=== PATIENT | female | born 1960 | race Caucasian/White ===

== ENCOUNTER 2019-07-12 10:24 | Inpatient (IN) ==
[2019-07-12] MEDS ORDERED: Ondansetron ODT 4 MG TAB.RAPDIS SL PRN (20:38)
[2019-07-12] MEDS ORDERED: Mag Hydrox/Al Hydrox/Simeth 30 ML UDC PO PRN (20:38)
[2019-07-12] MEDS: hydrALAZINE 25 MG TABLET PO SCH (23:24)
[2019-07-12] MEDS: Budesonide/Formoterol 160/4.5 1 PUFF INH IH SCH (23:25)
[2019-07-13 05:08] LABS: Basophils % 0.2 %; Eosinophils # 0.1 K/mcL (0.0-0.6); Eosinophils % 1.1 %; Hematocrit 27.8 % (35.3-44.9); Hemoglobin 8.3 g/dL (11.5-15.4); Immature Granulocytes % 0.2 % (0-4); Lymphocytes # 1.3 K/mcL (0.6-4.6); Lymphocytes % 12.5 %; Mean Corpuscular HGB Conc 29.9 g/dL (31.6-35.5); Mean Corpuscular Hemoglobin 30.2 pg (28.0-33.3); Mean Corpuscular Volume 101.1 fL (83.0-100.0); Mean Platelet Volume 10.1 fL (9.4-12.4); Monocytes # 0.6 K/mcL (0.0-1.3); Monocytes % 5.7 %; Neutrophils # 8.3 K/mcL (1.6-8.9); Platelet Count 288 K/mcL (140-400); Red Blood Count 2.75 M/mcL (3.82-4.97); Red Cell Distribution Width 14.2 % (11.5-14.5); Segmented Neutrophils % 80.3 %; White Blood Count 10.3 K/mcL (4.3-11.1)
[2019-07-13 05:36] LABS: Alanine Aminotransferase 22 Units/L (7-52); Albumin 3.2 g/dL (3.5-5.7); Albumin/Globulin Ratio 1.6 (1.1-2.2); Alkaline Phosphatase 67 Units/L (34-104); Aspartate Amino Transferase 15 Units/L (13-39); BUN/Creatinine Ratio 30 (6-26); Bilirubin,Total 0.5 mg/dL (0.3-1.0); Blood Urea Nitrogen 13 mg/dL (6-20); Calcium 9.1 mg/dL (8.6-10.3); Carbon Dioxide 45 mEq/L (23-29); Chloride 94 mEq/L (98-107); Glucose 108 mg/dL (70-105); Osmolality,Calculated 295 (280-300); Potassium 3.8 mEq/L (3.5-5.1); Sodium 142 mEq/L (136-145); Total Protein 5.2 g/dL (6.4-8.9); eGFR For African Americans > 60 (> 60); eGFR For Non-African Americans > 60 (> 60)
[2019-07-13] MEDS: *HR* Enoxaparin 40 MG/0.4 ML SYRINGE SQ SCH (07:03)
[2019-07-13] MEDS: hydrALAZINE 25 MG TABLET PO SCH ×3 (09:31→21:11)
[2019-07-13] MEDS: Metoprolol XL (24 HR) Succ 25 MG TAB.ER.24H PO SCH (09:32)
[2019-07-13] MEDS: *HR* OxyCODONE Immed Rel 5 MG TABLET PO PRN ×3 (10:03→21:11)
[2019-07-13] MEDS: Budesonide/Formoterol 160/4.5 1 PUFF INH IH SCH ×2 (10:33→21:10)
[2019-07-13] MEDS: Tiotropium 18 MCG inhalation IH SCH (10:33)
[2019-07-13] MEDS: Melatonin 3 MG TABLET PO PRN (21:11)
[2019-07-14] MEDS: *HR* OxyCODONE Immed Rel 5 MG TABLET PO PRN ×4 (03:43→18:53)
[2019-07-14] MEDS: *HR* Enoxaparin 40 MG/0.4 ML SYRINGE SQ SCH (06:17)
[2019-07-14] MEDS: Tiotropium 18 MCG inhalation IH SCH (07:36)
[2019-07-14] MEDS: Budesonide/Formoterol 160/4.5 1 PUFF INH IH SCH ×2 (07:36→21:26)
[2019-07-14] MEDS: hydrALAZINE 25 MG TABLET PO SCH ×3 (07:55→21:26)
[2019-07-14] MEDS: Metoprolol XL (24 HR) Succ 25 MG TAB.ER.24H PO SCH (07:55)
[2019-07-14] MEDS: Acetaminophen 325 MG TABLET PO PRN ×2 (10:57→15:17)
[2019-07-14 15:25] LABS: Bilirubin,Urine Negative (Negative); Blood,Urine Trace-intact (Negative); Clarity,Urine Slightly Cloudy (Clear); Color,Urine Yellow (Yellow); Glucose,Urine (UA) Normal (Normal); Ketones,Urine Negative (Negative); Leukocyte Esterase,Urine Trace (Negative); Nitrite,Urine Positive (Negative); Protein,Urine 30 mg/dL (Neg-Trace); Specific Gravity,Urine 1.025 (1.010-1.025)
[2019-07-14 15:34] LABS: RBC,Urine 15-30 per hpf (0-3)
[2019-07-14 15:35] LABS: Bacteria,Urine Many per hpf (None-Few); Squamous Epithelial Cell,Urine Moderate per lpf (None-Few); WBC,Urine 50-100 per hpf (0-3)
[2019-07-14] MEDS: Melatonin 3 MG TABLET PO PRN (21:26)
[2019-07-15] MEDS: *HR* OxyCODONE Immed Rel 5 MG TABLET PO PRN ×4 (04:41→18:23)
[2019-07-15] MEDS: *HR* Enoxaparin 40 MG/0.4 ML SYRINGE SQ SCH (04:41)
[2019-07-15] MEDS: Budesonide/Formoterol 160/4.5 1 PUFF INH IH SCH ×2 (08:56→20:30)
[2019-07-15] MEDS: Tiotropium 18 MCG inhalation IH SCH (08:56)
[2019-07-15] MEDS: hydrALAZINE 25 MG TABLET PO SCH ×3 (09:08→20:29)
[2019-07-15] MEDS: Metoprolol XL (24 HR) Succ 25 MG TAB.ER.24H PO SCH (09:08)
[2019-07-15] MEDS: Melatonin 3 MG TABLET PO PRN (20:29)
[2019-07-16] MEDS: *HR* OxyCODONE Immed Rel 5 MG TABLET PO PRN ×5 (00:24→21:28)
[2019-07-16] MEDS: *HR* Enoxaparin 40 MG/0.4 ML SYRINGE SQ SCH (05:53)
[2019-07-16] MEDS: Albuterol 2.5 MG/3 ML NEBULIZER IH PRN ×3 (06:26→19:50)
[2019-07-16 07:26] LABS: ABG Base Excess 10 mEq/L (-2 to 3); ABG HCO3 40 mEq/L (21-27); ABG Oxygen Saturation 94 % (95-98); ABG PCO2 87 mmHg (35-45); ABG PH 7.27 pH Units (7.32-7.45); ABG PO2 85 mmHg (85-104); ABG TCO2 43 mEq/L (20-26)
[2019-07-16] MEDS: hydrALAZINE 25 MG TABLET PO SCH ×3 (09:40→20:40)
[2019-07-16] MEDS: Metoprolol XL (24 HR) Succ 25 MG TAB.ER.24H PO SCH (09:40)
[2019-07-16] MEDS: Tiotropium 18 MCG inhalation IH SCH (10:10)
[2019-07-16] MEDS: Budesonide/Formoterol 160/4.5 1 PUFF INH IH SCH ×2 (10:10→19:51)
[2019-07-16] MEDS: Acetaminophen 325 MG TABLET PO PRN (19:52)
[2019-07-16] MEDS: hydrOXYzine pamoate 25 MG CAPSULE PO PRN (19:52)
[2019-07-16] MEDS: Melatonin 3 MG TABLET PO PRN (20:40)
[2019-07-17] MEDS: Albuterol 2.5 MG/3 ML NEBULIZER IH PRN ×4 (03:58→20:03)
[2019-07-17] MEDS: *HR* Enoxaparin 40 MG/0.4 ML SYRINGE SQ SCH (06:40)
[2019-07-17] MEDS: *HR* OxyCODONE Immed Rel 5 MG TABLET PO PRN ×4 (06:40→21:49)
[2019-07-17] MEDS: hydrALAZINE 25 MG TABLET PO SCH ×3 (07:48→21:48)
[2019-07-17] MEDS: Metoprolol XL (24 HR) Succ 25 MG TAB.ER.24H PO SCH (07:48)
[2019-07-17] MEDS: Tiotropium 18 MCG inhalation IH SCH (11:14)
[2019-07-17] MEDS: Budesonide/Formoterol 160/4.5 1 PUFF INH IH SCH ×2 (11:14→20:03)
[2019-07-17] MEDS: Acetaminophen 325 MG TABLET PO PRN (15:05)
[2019-07-17] MEDS: Melatonin 3 MG TABLET PO PRN (21:50)
[2019-07-18] MEDS: *HR* Enoxaparin 40 MG/0.4 ML SYRINGE SQ SCH (05:02)
[2019-07-18] MEDS: *HR* OxyCODONE Immed Rel 5 MG TABLET PO PRN ×5 (05:02→21:33)
[2019-07-18] MEDS: hydrALAZINE 25 MG TABLET PO SCH ×3 (08:20→21:32)
[2019-07-18] MEDS: Metoprolol XL (24 HR) Succ 25 MG TAB.ER.24H PO SCH (08:21)
[2019-07-18] MEDS: Acetaminophen 325 MG TABLET PO PRN (08:27)
[2019-07-18] MEDS: Budesonide/Formoterol 160/4.5 1 PUFF INH IH SCH ×2 (11:18→22:39)
[2019-07-18] MEDS: Tiotropium 18 MCG inhalation IH SCH (11:18)
[2019-07-19] MEDS: *HR* OxyCODONE Immed Rel 5 MG TABLET PO PRN ×5 (01:53→21:47)
[2019-07-19] MEDS: *HR* Enoxaparin 40 MG/0.4 ML SYRINGE SQ SCH (04:51)
[2019-07-19] MEDS: Albuterol 2.5 MG/3 ML NEBULIZER IH PRN (07:30)
[2019-07-19] MEDS: hydrALAZINE 25 MG TABLET PO SCH ×3 (07:48→20:54)
[2019-07-19] MEDS: Metoprolol XL (24 HR) Succ 25 MG TAB.ER.24H PO SCH (07:48)
[2019-07-19] MEDS: Acetaminophen 325 MG TABLET PO PRN ×3 (10:08→20:54)
[2019-07-19] MEDS: Budesonide/Formoterol 160/4.5 1 PUFF INH IH SCH ×2 (11:09→21:47)
[2019-07-19] MEDS: Tiotropium 18 MCG inhalation IH SCH (11:09)
[2019-07-19] MEDS: Albuterol 2.5 MG/3 ML NEBULIZER IH SCH ×3 (13:45→20:55)
[2019-07-20] MEDS: Albuterol 2.5 MG/3 ML NEBULIZER IH SCH ×3 (03:22→17:03)
[2019-07-20] MEDS: *HR* Enoxaparin 40 MG/0.4 ML SYRINGE SQ SCH (04:36)
[2019-07-20] MEDS: *HR* OxyCODONE Immed Rel 5 MG TABLET PO PRN ×4 (04:36→18:23)
[2019-07-20 05:18] LABS: Basophils % 0.5 %; Eosinophils # 0.2 K/mcL (0.0-0.6); Eosinophils % 5.3 %; Hematocrit 27.1 % (35.3-44.9); Hemoglobin 8.1 g/dL (11.5-15.4); Immature Granulocytes % 0.3 % (0-4); Lymphocytes # 0.9 K/mcL (0.6-4.6); Lymphocytes % 23.1 %; Mean Corpuscular HGB Conc 29.9 g/dL (31.6-35.5); Mean Corpuscular Hemoglobin 30.1 pg (28.0-33.3); Mean Corpuscular Volume 100.7 fL (83.0-100.0); Mean Platelet Volume 9.7 fL (9.4-12.4); Monocytes # 0.4 K/mcL (0.0-1.3); Monocytes % 10.4 %; Neutrophils # 2.3 K/mcL (1.6-8.9); Platelet Count 240 K/mcL (140-400); Red Blood Count 2.69 M/mcL (3.82-4.97); Red Cell Distribution Width 14.5 % (11.5-14.5); Segmented Neutrophils % 60.4 %; White Blood Count 3.8 K/mcL (4.3-11.1)
[2019-07-20 05:33] LABS: BUN/Creatinine Ratio 21 (6-26); Blood Urea Nitrogen 10 mg/dL (6-20); Calcium 8.7 mg/dL (8.6-10.3); Carbon Dioxide 39 mEq/L (23-29); Chloride 98 mEq/L (98-107); Glucose 123 mg/dL (70-105); Osmolality,Calculated 292 (280-300); Potassium 3.8 mEq/L (3.5-5.1); Sodium 141 mEq/L (136-145); eGFR For African Americans > 60 (> 60); eGFR For Non-African Americans > 60 (> 60)
[2019-07-20] MEDS: Acetaminophen 325 MG TABLET PO PRN ×3 (07:27→21:39)
[2019-07-20] MEDS: Metoprolol XL (24 HR) Succ 25 MG TAB.ER.24H PO SCH (08:02)
[2019-07-20] MEDS: hydrALAZINE 25 MG TABLET PO SCH ×3 (08:02→21:39)
[2019-07-20] MEDS: Budesonide/Formoterol 160/4.5 1 PUFF INH IH SCH ×2 (09:24→21:39)
[2019-07-20] MEDS: Tiotropium 18 MCG inhalation IH SCH (09:24)
[2019-07-21] MEDS: *HR* OxyCODONE Immed Rel 5 MG TABLET PO PRN ×6 (00:03→21:32)
[2019-07-21] MEDS: Albuterol 2.5 MG/3 ML NEBULIZER IH SCH ×5 (00:06→22:04)
[2019-07-21] MEDS: *HR* Enoxaparin 40 MG/0.4 ML SYRINGE SQ SCH (05:23)
[2019-07-21] MEDS: Metoprolol XL (24 HR) Succ 25 MG TAB.ER.24H PO SCH (07:54)
[2019-07-21] MEDS: hydrALAZINE 25 MG TABLET PO SCH ×3 (07:54→21:32)
[2019-07-21] MEDS: Acetaminophen 325 MG TABLET PO PRN (09:00)
[2019-07-21] MEDS: Budesonide/Formoterol 160/4.5 1 PUFF INH IH SCH ×2 (11:02→22:04)
[2019-07-21] MEDS: Tiotropium 18 MCG inhalation IH SCH (11:02)
[2019-07-22] MEDS: *HR* OxyCODONE Immed Rel 5 MG TABLET PO PRN ×5 (02:18→20:30)
[2019-07-22] MEDS: Albuterol 2.5 MG/3 ML NEBULIZER IH SCH ×4 (04:14→21:46)
[2019-07-22] MEDS: *HR* Enoxaparin 40 MG/0.4 ML SYRINGE SQ SCH (06:50)
[2019-07-22] MEDS: hydrALAZINE 25 MG TABLET PO SCH ×3 (07:45→20:30)
[2019-07-22] MEDS: Metoprolol XL (24 HR) Succ 25 MG TAB.ER.24H PO SCH (07:46)
[2019-07-22] MEDS: Budesonide/Formoterol 160/4.5 1 PUFF INH IH SCH ×2 (11:21→21:46)
[2019-07-22] MEDS: Tiotropium 18 MCG inhalation IH SCH (11:38)
[2019-07-22] MEDS ORDERED: Isovue-370 500 ML BOTTLE IVP ONE (18:09)
[2019-07-22 18:45] LABS: ABG Base Excess 9 mEq/L (-2 to 3); ABG HCO3 38 mEq/L (21-27); ABG Oxygen Saturation 92 % (95-98); ABG PCO2 69 mmHg (35-45); ABG PH 7.35 pH Units (7.32-7.45); ABG PO2 71 mmHg (85-104); ABG TCO2 40 mEq/L (20-26)
[2019-07-22 18:49] LABS: BUN/Creatinine Ratio 15 (6-26); Blood Urea Nitrogen 9 mg/dL (6-20); Calcium 8.9 mg/dL (8.6-10.3); Carbon Dioxide 40 mEq/L (23-29); Chloride 97 mEq/L (98-107); Glucose 157 mg/dL (70-105); Osmolality,Calculated 290 (280-300); Potassium 3.8 mEq/L (3.5-5.1); Sodium 139 mEq/L (136-145); eGFR For African Americans > 60 (> 60); eGFR For Non-African Americans > 60 (> 60)
[2019-07-22] MEDS: hydrOXYzine pamoate 25 MG CAPSULE PO PRN (20:30)
[2019-07-22] MEDS: Melatonin 3 MG TABLET PO PRN (20:30)
[2019-07-23] MEDS: *HR* OxyCODONE Immed Rel 5 MG TABLET PO PRN ×5 (03:46→20:27)
[2019-07-23] MEDS: *HR* Enoxaparin 40 MG/0.4 ML SYRINGE SQ SCH (03:46)
[2019-07-23] MEDS: Albuterol 2.5 MG/3 ML NEBULIZER IH SCH ×4 (03:50→20:13)
[2019-07-23] MEDS: hydrALAZINE 25 MG TABLET PO SCH ×3 (08:01→20:14)
[2019-07-23] MEDS: Metoprolol XL (24 HR) Succ 25 MG TAB.ER.24H PO SCH (08:01)
[2019-07-23] MEDS: Acetaminophen 325 MG TABLET PO PRN ×2 (09:43→18:38)
[2019-07-23] MEDS: Tiotropium 18 MCG inhalation IH SCH (10:58)
[2019-07-23] MEDS: Budesonide/Formoterol 160/4.5 1 PUFF INH IH SCH ×2 (10:59→20:28)
[2019-07-24] MEDS: *HR* OxyCODONE Immed Rel 5 MG TABLET PO PRN ×5 (04:27→21:27)
[2019-07-24] MEDS: Albuterol 2.5 MG/3 ML NEBULIZER IH SCH ×4 (04:28→21:28)
[2019-07-24] MEDS: *HR* Enoxaparin 40 MG/0.4 ML SYRINGE SQ SCH (04:28)
[2019-07-24] MEDS: Metoprolol XL (24 HR) Succ 25 MG TAB.ER.24H PO SCH (08:48)
[2019-07-24] MEDS: hydrALAZINE 25 MG TABLET PO SCH ×3 (08:48→21:28)
[2019-07-24] MEDS: Tiotropium 18 MCG inhalation IH SCH (09:19)
[2019-07-24] MEDS: Budesonide/Formoterol 160/4.5 1 PUFF INH IH SCH ×2 (09:19→21:28)
[2019-07-24] MEDS: Melatonin 3 MG TABLET PO PRN (21:28)
[2019-07-25] MEDS: *HR* OxyCODONE Immed Rel 5 MG TABLET PO PRN ×5 (02:28→22:43)
[2019-07-25] MEDS: Albuterol 2.5 MG/3 ML NEBULIZER IH SCH ×4 (06:34→20:26)
[2019-07-25] MEDS: *HR* Enoxaparin 40 MG/0.4 ML SYRINGE SQ SCH (06:40)
[2019-07-25] MEDS: Tiotropium 18 MCG inhalation IH SCH (09:29)
[2019-07-25] MEDS: Budesonide/Formoterol 160/4.5 1 PUFF INH IH SCH ×2 (09:29→20:26)
[2019-07-25] MEDS: hydrALAZINE 25 MG TABLET PO SCH ×3 (09:41→20:26)
[2019-07-25] MEDS: Metoprolol XL (24 HR) Succ 25 MG TAB.ER.24H PO SCH (09:42)
[2019-07-25] MEDS: Furosemide 20 MG/2 ML VIAL IVP SCH ×2 (13:11→20:26)
[2019-07-25] MEDS: MethylPREDNISolone 40 MG/ML VIAL IVP SCH ×2 (15:59→22:43)
[2019-07-25] MEDS: Melatonin 3 MG TABLET PO PRN (20:25)
[2019-07-26] MEDS: *HR* Enoxaparin 40 MG/0.4 ML SYRINGE SQ SCH (04:22)
[2019-07-26] MEDS: *HR* OxyCODONE Immed Rel 5 MG TABLET PO PRN ×5 (04:22→23:01)
[2019-07-26] MEDS: Albuterol 2.5 MG/3 ML NEBULIZER IH SCH ×4 (04:22→21:49)
[2019-07-26 05:23] LABS: Hematocrit 31.3 % (35.3-44.9); Hemoglobin 9.3 g/dL (11.5-15.4); Immature Granulocytes % 0.2 % (0-4); Lymphocytes # 0.6 K/mcL (0.6-4.6); Lymphocytes % 13.3 %; Mean Corpuscular HGB Conc 29.7 g/dL (31.6-35.5); Mean Corpuscular Hemoglobin 29.4 pg (28.0-33.3); Mean Corpuscular Volume 99.1 fL (83.0-100.0); Mean Platelet Volume 10.3 fL (9.4-12.4); Monocytes # 0.1 K/mcL (0.0-1.3); Monocytes % 1.6 %; Neutrophils # 3.8 K/mcL (1.6-8.9); Platelet Count 332 K/mcL (140-400); Red Blood Count 3.16 M/mcL (3.82-4.97); Segmented Neutrophils % 84.9 %; White Blood Count 4.4 K/mcL (4.3-11.1)
[2019-07-26 05:50] LABS: BUN/Creatinine Ratio 20 (6-26); Blood Urea Nitrogen 10 mg/dL (6-20); Calcium 9.2 mg/dL (8.6-10.3); Carbon Dioxide 41 mEq/L (23-29); Chloride 94 mEq/L (98-107); Glucose 171 mg/dL (70-105); Osmolality,Calculated 291 (280-300); Sodium 139 mEq/L (136-145); eGFR For African Americans > 60 (> 60); eGFR For Non-African Americans > 60 (> 60)
[2019-07-26] MEDS: Metoprolol XL (24 HR) Succ 25 MG TAB.ER.24H PO SCH (09:34)
[2019-07-26] MEDS: hydrALAZINE 25 MG TABLET PO SCH ×3 (09:34→21:35)
[2019-07-26] MEDS: Furosemide 20 MG/2 ML VIAL IVP SCH (09:35)
[2019-07-26] MEDS: MethylPREDNISolone 40 MG/ML VIAL IVP SCH ×2 (09:35→15:35)
[2019-07-26] MEDS: Tiotropium 18 MCG inhalation IH SCH (11:16)
[2019-07-26] MEDS: Budesonide/Formoterol 160/4.5 1 PUFF INH IH SCH ×2 (11:18→21:50)
[2019-07-26] MEDS: Acetaminophen 325 MG TABLET PO PRN (11:39)
[2019-07-26] MEDS: acetaZOLAMIDE 250 MG TABLET PO SCH ×2 (11:40→21:35)
[2019-07-27] MEDS: MethylPREDNISolone 40 MG/ML VIAL IVP SCH ×3 (00:06→15:55)
[2019-07-27] MEDS: Albuterol 2.5 MG/3 ML NEBULIZER IH SCH ×4 (04:03→21:25)
[2019-07-27] MEDS: *HR* Enoxaparin 40 MG/0.4 ML SYRINGE SQ SCH (05:24)
[2019-07-27] MEDS: *HR* OxyCODONE Immed Rel 5 MG TABLET PO PRN ×4 (05:29→20:56)
[2019-07-27 05:41] LABS: Basophils % 0.1 %; Hematocrit 33.7 % (35.3-44.9); Hemoglobin 9.8 g/dL (11.5-15.4); Immature Granulocytes % 0.4 % (0-4); Lymphocytes # 0.6 K/mcL (0.6-4.6); Lymphocytes % 8.7 %; Mean Corpuscular HGB Conc 29.1 g/dL (31.6-35.5); Mean Corpuscular Hemoglobin 29.2 pg (28.0-33.3); Mean Corpuscular Volume 100.3 fL (83.0-100.0); Mean Platelet Volume 10.2 fL (9.4-12.4); Monocytes # 0.2 K/mcL (0.0-1.3); Monocytes % 2.1 %; Neutrophils # 6.2 K/mcL (1.6-8.9); Platelet Count 357 K/mcL (140-400); Red Blood Count 3.36 M/mcL (3.82-4.97); Red Cell Distribution Width 14.2 % (11.5-14.5); Segmented Neutrophils % 88.7 %
[2019-07-27 05:57] LABS: BUN/Creatinine Ratio 24 (6-26); Blood Urea Nitrogen 15 mg/dL (6-20); Calcium 9.5 mg/dL (8.6-10.3); Carbon Dioxide 36 mEq/L (23-29); Chloride 97 mEq/L (98-107); Glucose 176 mg/dL (70-105); Osmolality,Calculated 289 (280-300); Sodium 137 mEq/L (136-145); eGFR For African Americans > 60 (> 60); eGFR For Non-African Americans > 60 (> 60)
[2019-07-27] MEDS: Budesonide/Formoterol 160/4.5 1 PUFF INH IH SCH ×2 (08:08→21:25)
[2019-07-27] MEDS: Tiotropium 18 MCG inhalation IH SCH (08:08)
[2019-07-27] MEDS: Metoprolol XL (24 HR) Succ 25 MG TAB.ER.24H PO SCH (09:16)
[2019-07-27] MEDS: hydrALAZINE 25 MG TABLET PO SCH ×3 (09:17→20:55)
[2019-07-27] MEDS: acetaZOLAMIDE 250 MG TABLET PO SCH ×2 (09:17→20:55)
[2019-07-27] MEDS: Melatonin 3 MG TABLET PO PRN (20:55)
[2019-07-28] MEDS: MethylPREDNISolone 40 MG/ML VIAL IVP SCH ×4 (00:08→22:53)
[2019-07-28] MEDS: Albuterol 2.5 MG/3 ML NEBULIZER IH SCH ×4 (04:00→22:53)
[2019-07-28] MEDS: *HR* Enoxaparin 40 MG/0.4 ML SYRINGE SQ SCH (04:20)
[2019-07-28] MEDS: hydrALAZINE 25 MG TABLET PO SCH ×3 (08:17→22:53)
[2019-07-28] MEDS: *HR* OxyCODONE Immed Rel 5 MG TABLET PO PRN ×4 (08:17→22:53)
[2019-07-28] MEDS: Metoprolol XL (24 HR) Succ 25 MG TAB.ER.24H PO SCH (08:18)
[2019-07-28] MEDS: acetaZOLAMIDE 250 MG TABLET PO SCH (08:18)
[2019-07-28] MEDS: Budesonide/Formoterol 160/4.5 1 PUFF INH IH SCH ×2 (09:59→22:54)
[2019-07-28] MEDS: Tiotropium 18 MCG inhalation IH SCH (10:00)
[2019-07-28] MEDS: Melatonin 3 MG TABLET PO PRN (22:53)
[2019-07-29] MEDS: Albuterol 2.5 MG/3 ML NEBULIZER IH SCH ×4 (05:20→22:12)
[2019-07-29] MEDS: *HR* Enoxaparin 40 MG/0.4 ML SYRINGE SQ SCH (05:20)
[2019-07-29] MEDS: MethylPREDNISolone 40 MG/ML VIAL IVP SCH ×2 (07:47→16:15)
[2019-07-29] MEDS: Metoprolol XL (24 HR) Succ 25 MG TAB.ER.24H PO SCH (07:47)
[2019-07-29] MEDS: hydrALAZINE 25 MG TABLET PO SCH ×3 (07:47→22:12)
[2019-07-29] MEDS: *HR* OxyCODONE Immed Rel 5 MG TABLET PO PRN ×4 (07:47→22:12)
[2019-07-29] MEDS: Budesonide/Formoterol 160/4.5 1 PUFF INH IH SCH ×2 (09:00→22:12)
[2019-07-29] MEDS: Tiotropium 18 MCG inhalation IH SCH (09:01)
[2019-07-29] MEDS: hydrOXYzine pamoate 25 MG CAPSULE PO PRN (22:12)
[2019-07-30] MEDS: MethylPREDNISolone 40 MG/ML VIAL IVP SCH ×4 (00:31→23:53)
[2019-07-30] MEDS: *HR* Enoxaparin 40 MG/0.4 ML SYRINGE SQ SCH (05:13)
[2019-07-30] MEDS: Albuterol 2.5 MG/3 ML NEBULIZER IH SCH ×4 (05:14→22:33)
[2019-07-30] MEDS: *HR* OxyCODONE Immed Rel 5 MG TABLET PO PRN ×4 (05:14→23:53)
[2019-07-30 05:56] LABS: Basophils % 0.1 %; Hemoglobin 10.4 g/dL (11.5-15.4); Immature Granulocytes % 0.5 % (0-4); Lymphocytes # 1.1 K/mcL (0.6-4.6); Lymphocytes % 13.5 %; Mean Corpuscular HGB Conc 29.7 g/dL (31.6-35.5); Mean Corpuscular Hemoglobin 29.1 pg (28.0-33.3); Mean Corpuscular Volume 97.8 fL (83.0-100.0); Mean Platelet Volume 10.5 fL (9.4-12.4); Monocytes # 0.3 K/mcL (0.0-1.3); Neutrophils # 6.5 K/mcL (1.6-8.9); Nucleated Red Blood Cells 0.4 /100 WBC (0); Platelet Count 359 K/mcL (140-400); Red Blood Count 3.58 M/mcL (3.82-4.97); Red Cell Distribution Width 14.1 % (11.5-14.5); Segmented Neutrophils % 81.9 %; White Blood Count 7.9 K/mcL (4.3-11.1)
[2019-07-30 06:09] LABS: Alanine Aminotransferase 25 Units/L (7-52); Albumin 3.7 g/dL (3.5-5.7); Albumin/Globulin Ratio 1.4 (1.1-2.2); Alkaline Phosphatase 86 Units/L (34-104); Aspartate Amino Transferase 15 Units/L (13-39); BUN/Creatinine Ratio 37 (6-26); Bilirubin,Total 0.3 mg/dL (0.3-1.0); Blood Urea Nitrogen 21 mg/dL (6-20); Calcium 9.1 mg/dL (8.6-10.3); Carbon Dioxide 34 mEq/L (23-29); Chloride 99 mEq/L (98-107); Globulin 2.6 g/dL (2.4-3.5); Glucose 175 mg/dL (70-105); Magnesium 2.3 mg/dL (1.6-2.6); Osmolality,Calculated 293 (280-300); Potassium 4.1 mEq/L (3.5-5.1); Sodium 138 mEq/L (136-145); Total Protein 6.3 g/dL (6.4-8.9); eGFR For African Americans > 60 (> 60); eGFR For Non-African Americans > 60 (> 60)
[2019-07-30] MEDS: Metoprolol XL (24 HR) Succ 25 MG TAB.ER.24H PO SCH (08:21)
[2019-07-30] MEDS: hydrALAZINE 25 MG TABLET PO SCH ×3 (08:21→22:05)
[2019-07-30] MEDS: Budesonide/Formoterol 160/4.5 1 PUFF INH IH SCH ×2 (09:26→22:36)
[2019-07-30] MEDS: Tiotropium 18 MCG inhalation IH SCH (09:26)
[2019-07-30] MEDS: Melatonin 3 MG TABLET PO PRN (22:05)
[2019-07-30] MEDS: hydrOXYzine pamoate 25 MG CAPSULE PO PRN (22:05)
[2019-07-31] MEDS: Albuterol 2.5 MG/3 ML NEBULIZER IH SCH ×4 (04:04→21:59)
[2019-07-31] MEDS: *HR* Enoxaparin 40 MG/0.4 ML SYRINGE SQ SCH (06:24)
[2019-07-31] MEDS: *HR* OxyCODONE Immed Rel 5 MG TABLET PO PRN ×4 (06:25→21:23)
[2019-07-31] MEDS: MethylPREDNISolone 40 MG/ML VIAL IVP SCH (09:09)
[2019-07-31] MEDS: Metoprolol XL (24 HR) Succ 25 MG TAB.ER.24H PO SCH (09:11)
[2019-07-31] MEDS: hydrALAZINE 25 MG TABLET PO SCH ×3 (09:11→21:23)
[2019-07-31] MEDS: Budesonide/Formoterol 160/4.5 1 PUFF INH IH SCH ×2 (09:35→21:59)
[2019-07-31] MEDS: Tiotropium 18 MCG inhalation IH SCH (09:35)
[2019-07-31] MEDS: predniSONE 20 MG TABLET PO SCH (13:00)
[2019-07-31] MEDS: hydrOXYzine pamoate 25 MG CAPSULE PO PRN (21:23)
[2019-07-31] MEDS: Melatonin 3 MG TABLET PO PRN (21:23)
[2019-08-01] MEDS: Albuterol 2.5 MG/3 ML NEBULIZER IH SCH ×4 (04:11→21:52)
[2019-08-01] MEDS: *HR* Enoxaparin 40 MG/0.4 ML SYRINGE SQ SCH (05:30)
[2019-08-01] MEDS: *HR* OxyCODONE Immed Rel 5 MG TABLET PO PRN ×5 (05:30→22:13)
[2019-08-01] MEDS: hydrALAZINE 25 MG TABLET PO SCH ×3 (08:59→22:13)
[2019-08-01] MEDS: predniSONE 20 MG TABLET PO SCH (08:59)
[2019-08-01] MEDS: Metoprolol XL (24 HR) Succ 25 MG TAB.ER.24H PO SCH (08:59)
[2019-08-01] MEDS: Tiotropium 18 MCG inhalation IH SCH (11:13)
[2019-08-01] MEDS: Budesonide/Formoterol 160/4.5 1 PUFF INH IH SCH ×2 (11:14→21:52)
[2019-08-01] MEDS: Melatonin 3 MG TABLET PO PRN (22:13)
[2019-08-01] MEDS: hydrOXYzine pamoate 25 MG CAPSULE PO PRN (22:13)
[2019-08-02] MEDS: *HR* Enoxaparin 40 MG/0.4 ML SYRINGE SQ SCH (03:34)
[2019-08-02] MEDS: *HR* OxyCODONE Immed Rel 5 MG TABLET PO PRN ×5 (03:34→21:44)
[2019-08-02] MEDS: Albuterol 2.5 MG/3 ML NEBULIZER IH SCH ×4 (04:08→21:27)
[2019-08-02 05:35] LABS: ABG Base Excess 11 mEq/L (-2 to 3); ABG HCO3 38 mEq/L (21-27); ABG Oxygen Saturation 87 % (95-98); ABG PCO2 66 mmHg (35-45); ABG PH 7.37 pH Units (7.32-7.45); ABG PO2 56 mmHg (85-104); ABG TCO2 40 mEq/L (20-26)
[2019-08-02] MEDS: predniSONE 20 MG TABLET PO SCH (07:59)
[2019-08-02] MEDS: hydrALAZINE 25 MG TABLET PO SCH ×3 (07:59→21:26)
[2019-08-02] MEDS: Metoprolol XL (24 HR) Succ 25 MG TAB.ER.24H PO SCH (08:00)
[2019-08-02] MEDS: Acetaminophen 325 MG TABLET PO PRN (09:45)
[2019-08-02] MEDS ORDERED: Artificial Tears SOLN 15 ML BOTTLE LEFT EYE PRN (10:29)
[2019-08-02] MEDS: Tiotropium 18 MCG inhalation IH SCH (11:15)
[2019-08-02] MEDS: Budesonide/Formoterol 160/4.5 1 PUFF INH IH SCH ×2 (11:15→21:26)
[2019-08-02] MEDS: hydrOXYzine pamoate 25 MG CAPSULE PO PRN (21:26)
[2019-08-02] MEDS: Melatonin 3 MG TABLET PO PRN (21:26)
[2019-08-03] MEDS: Albuterol 2.5 MG/3 ML NEBULIZER IH SCH ×2 (04:30→12:00)
[2019-08-03] MEDS: *HR* Enoxaparin 40 MG/0.4 ML SYRINGE SQ SCH (06:35)
[2019-08-03] MEDS: *HR* OxyCODONE Immed Rel 5 MG TABLET PO PRN ×2 (06:35→10:34)
[2019-08-03 07:20] VITALS: BP 126/76
[2019-08-03] MEDS: hydrALAZINE 25 MG TABLET PO SCH (09:52)
[2019-08-03] MEDS: Metoprolol XL (24 HR) Succ 25 MG TAB.ER.24H PO SCH (09:52)
[2019-08-03] MEDS: Budesonide/Formoterol 160/4.5 1 PUFF INH IH SCH (12:00)
[2019-08-03] MEDS: Tiotropium 18 MCG inhalation IH SCH (12:00)
== END 2019-08-03 12:00 | disposition home or self-care (01) | DRG 945 ==
LOC: INPGRE 18:20 → SUATTDRO 18:20
PROVIDERS: ATTEND Family Medicine